=== PATIENT | male | born 1950 | race Caucasian/White ===

== ENCOUNTER → 2019-03-18 | Outpatient (CLI) | payer OTHER ==
[~2019-03-18] MED LIST: ASPI81CH; Advil200 M1; Cialis5 MG; DAILY MULTIPLE1 EACH; Depo-Testos200 MG/ML; LIVALO4 MG; LOSHYD100; OMEP20ER; TOCO400; Vitamin C100 M1; [UNRECOGNIZED DRUG - OTHER]
[2019-03-19 11:43] LABS: Adenovirus F 40/41 Not Detected (NOT DETECT); Campylobacter Sp Not Detected (NOT DETECT); Cryptosporidium Not Detected (NOT DETECT); Cyclospora Cayetanensis Not Detected (NOT DETECT); E. Coli O157 Not Detected (NOT DETECT); Entamoeba Histolytica Not Detected (NOT DETECT); Enteroaggregative E. coli-EAEC Not Detected (NOT DETECT); Enteropathogenic E. coli-EPEC Not Detected (NOT DETECT); Enterotoxigenic E. coli-ETEC Not Detected (NOT DETECT); Giardia Lamblia Not Detected (NOT DETECT); Plesiomonas Shigelloides Not Detected (NOT DETECT); Salmonella Sp Not Detected (NOT DETECT); Shiga Toxin-prod E. coli-STEC Not Detected (NOT DETECT); Shigella/Enteroin E. coli-EIEC Not Detected (NOT DETECT); Vibrio Cholerae Not Detected (NOT DETECT); Vibrio Sp Not Detected (NOT DETECT); Yersinia Enterocolitica Not Detected (NOT DETECT)
[2019-03-19 11:44] LABS: Astrovirus Not Detected (NOT DETECT); Norovirus GI/GII Not Detected (NOT DETECT); Rotavirus A Not Detected (NOT DETECT); Sapovirus Not Detected (NOT DETECT)
== END | disposition home or self-care (01) ==
LOC: LAB SHORT 20:30 → LAB 20:30 → LAB FUT 03-18 10:40 → EDSTATUS 03-18 10:40
PROVIDERS: Family Medicine
DX: K52.9 Noninfective gastroenteritis and colitis, unspecified (principal)
CPT/HCPCS: 0097U

== ENCOUNTER 2019-04-02 13:35 | Day surgery (SDC) | payer OTHER ==
[~2019-04-02] VITALS: Ht 185.4 cm; Wt 85.1 kg
== END 2019-04-02 15:42 | disposition home or self-care (01) ==
LOC: ORSCSDS 13:35
PROVIDERS: Internal Medicine Gastroenterology
PROC: 0DB78ZX Excision of Stomach, Pylorus, Via Natural or Artificial Opening Endoscopic, Diagnostic (ICD-10-PCS; principal; 2019-04-02 15:00)
PROC: 0DB58ZX Excision of Esophagus, Via Natural or Artificial Opening Endoscopic, Diagnostic (ICD-10-PCS; principal; 2019-04-02 15:00)
PROC: 0DB98ZX Excision of Duodenum, Via Natural or Artificial Opening Endoscopic, Diagnostic (ICD-10-PCS; principal; 2019-04-02 15:00)
DX: K21.9 Gastro-esophageal reflux disease without esophagitis (principal); R63.4 Abnormal weight loss; R19.7 Diarrhea, unspecified; K31.7 Polyp of stomach and duodenum; K29.80 Duodenitis without bleeding; K29.70 Gastritis, unspecified, without bleeding; F17.210 Nicotine dependence, cigarettes, uncomplicated; I10 Essential (primary) hypertension; Z79.899 Other long term (current) drug therapy; Z79.82 Long term (current) use of aspirin
CPT/HCPCS: 87081; 88305; 88342; J2704; J7120

== ENCOUNTER → 2019-04-03 | Outpatient (CLI) | payer OTHER | END | disposition home or self-care (01) | LOC: LAB SHORT 10:28 → OLS 10:28 | PROVIDERS: Internal Medicine Gastroenterology | DX: K52.9 Noninfective gastroenteritis and colitis, unspecified (principal); R63.4 Abnormal weight loss | CPT/HCPCS: 82656; 83993 ==

== ENCOUNTER → 2019-04-07 | Outpatient (CLI) | payer OTHER | END | disposition home or self-care (01) | LOC: OLS 12:46 → LAB SHORT 12:46 → LAB FUT 03-31 14:10 → EDSTATUS 03-31 14:10 | PROVIDERS: Internal Medicine Gastroenterology | DX: R19.7 Diarrhea, unspecified (principal); R63.4 Abnormal weight loss | CPT/HCPCS: 82710 ==

== ENCOUNTER → 2021-05-11 | Outpatient (CLI) | payer MEDICARE | LOC: LAB SHORT 07:08 | DX: D48.5 Neoplasm of uncertain behavior of skin (principal) | CPT/HCPCS: 88312 ==

== ENCOUNTER 2025-01-21 18:04 | Inpatient (IN) | payer MEDICARE ==
[~2025-01-21] VITALS: Ht 185.4 cm; Wt 81.4 kg
[~2025-01-21 18:04] MED LIST changes: -Advil200 M1; +IBUP200 PO; -OMEP20ER; +OMEP20ER PO; -Vitamin C100 M1; +Vitamin C100 M1 PO; -[UNRECOGNIZED DRUG - OTHER]; +[UNRECOGNIZED DRUG - OTHER] PO
[2025-01-21 19:00] LABS: BASOPHILS ABSOLUTE AUTO 0.07 K/mm3 (0.00-0.23); BASOPHILS PERCENT AUTO 1 % (0-2); EOSINOPHILS ABSOLUTE AUTO 0.20 K/mm3 (0.00-0.68); EOSINOPHILS PERCENT AUTO 2 % (0-6); Hematocrit 37.8 % (37.0-53.0); Hemoglobin 13.2 g/dL (13.5-17.5); IMMATURE GRAN ABSOLUTE AUTO 0.05 K/mm3 (0.00-0.10); IMMATURE GRAN PERCENT AUTO 1 % (0-1); LYMPHOCYTES ABSOLUTE AUTO 1.89 K/mm3 (0.84-5.20); LYMPHOCYTES PERCENT AUTO 23 % (21-46); MONOCYTES ABSOLUTE AUTO 0.78 K/mm3 (0.16-1.47); MONOCYTES PERCENT AUTO 10 % (4-13); Mean Corpuscular HGB Conc 34.9 g/dL (31.5-36.5); Mean Corpuscular Volume 97 fL (80-100); NEUTROPHILS ABSOLUTE AUTO 5.21 K/mm3 (1.96-9.15); NEUTROPHILS PERCENT AUTO 64 % (41-73); NRBC ABSOLUTE 0.00 K/mm3 (0.00-0.02); NRBC Auto 0.0 /100 WBC (0.0-0.2); Platelet Count 228 K/mm3 (150-400); RDW Coefficient Variation 13.7 % (11.7-14.2); RDW Standard Deviation 48.1 fL (35.1-46.3)
[2025-01-21 19:28] LABS: Alanine Aminotransfer (ALT/SGP 27.0 U/L (12-78); Albumin, Blood 2.6 g/dL (3.4-5.0); Albumin/Globulin Ratio 0.9 (0.8-1.8); Anion Gap 8.0 mmol/L (3-11); Aspartate Aminotrans (AST/SGOT 23.0 U/L (12-37); Bilirubin, Total 0.4 mg/dL (0.1-1.0); Blood Urea Nitrogen 13.0 mg/dL (8-24); CO2, Blood 25.0 mmol/L (21-32); Calcium, Blood 8.4 mg/dL (8.5-10.1); Chloride, Blood 107.0 mmol/L (98-108); Creatinine, Blood 0.7 mg/dL (0.60-1.20); Globulin, Blood 2.9 g/dL (2.2-4.0); Glucose, Blood 79.0 mg/dL (70-99); Potassium, Blood 3.1 mmol/L (3.5-5.5); Sodium, Blood 137.0 mmol/L (136-145); Total Protein, Blood 5.5 g/dL (6.4-8.2)
[2025-01-21] MEDS ORDERED: METO100ER PO (21:31)
[2025-01-21] MEDS ORDERED: AMLODIPINE BESYL5 MG PO (21:31)
[2025-01-21] MEDS ORDERED: ATORVASTATIN CA20 MG PO (21:32)
[2025-01-21] MEDS ORDERED: SPIRIVA RESPIMAT4 G3 INH (21:32)
[2025-01-21] MEDS ORDERED: Tiotropium Bromide 2.5 MCG/ACT MIST INHAL (10 ACT/4 GM) INH SCH (23:10)
[2025-01-21] MEDS ORDERED: NS 1,000 ML IV ONE ×2 (23:30→23:55)
[2025-01-21 23:37] LABS: Magnesium, Blood 1.5 mg/dL (1.6-2.4); Phosphorus, Blood 3.8 mg/dL (2.5-4.9)
[2025-01-21 23:54] LABS: Prothrombin Time Results 11.3 Sec (9.7-11.5)
[2025-01-21] MEDS ORDERED: Ondansetron HCl 2 MG / ML 2ML Vial IV PRN (23:55)
[2025-01-22] MEDS ORDERED: Pantoprazole Sodium 40 MG Injection IV SCH (00:18)
[2025-01-22] MEDS ORDERED: NS 1,000 ML IV ONE (01:02)
[2025-01-22] MEDS ORDERED: Heparin Sodium,Porcine/0.5 NS 500 ML IV SCH (02:00)
[2025-01-22] MEDS ORDERED: Heparin Sodium 5000 Units/ML 1ML MDV IV ONE (02:00)
[2025-01-22] MEDS ORDERED: Magnesium Sulf 2 GM/Water 50ML 50 ML IV ONE (03:15)
[2025-01-22 07:29] LABS: BASOPHILS ABSOLUTE AUTO 0.07 K/mm3 (0.00-0.23); BASOPHILS PERCENT AUTO 1 % (0-2); EOSINOPHILS ABSOLUTE AUTO 0.20 K/mm3 (0.00-0.68); EOSINOPHILS PERCENT AUTO 2 % (0-6); Hematocrit 37.0 % (37.0-53.0); Hemoglobin 12.8 g/dL (13.5-17.5); IMMATURE GRAN ABSOLUTE AUTO 0.06 K/mm3 (0.00-0.10); IMMATURE GRAN PERCENT AUTO 1 % (0-1); LYMPHOCYTES ABSOLUTE AUTO 1.31 K/mm3 (0.84-5.20); LYMPHOCYTES PERCENT AUTO 16 % (21-46); MONOCYTES ABSOLUTE AUTO 0.74 K/mm3 (0.16-1.47); MONOCYTES PERCENT AUTO 9 % (4-13); Mean Corpuscular HGB Conc 34.6 g/dL (31.5-36.5); Mean Corpuscular Volume 97 fL (80-100); NEUTROPHILS ABSOLUTE AUTO 5.83 K/mm3 (1.96-9.15); NEUTROPHILS PERCENT AUTO 71 % (41-73); NRBC ABSOLUTE 0.00 K/mm3 (0.00-0.02); NRBC Auto 0.0 /100 WBC (0.0-0.2); Platelet Count 210 K/mm3 (150-400); RDW Coefficient Variation 13.7 % (11.7-14.2); RDW Standard Deviation 48.0 fL (35.1-46.3)
[2025-01-22 07:51] LABS: Alanine Aminotransfer (ALT/SGP 22.0 U/L (12-78); Albumin, Blood 2.5 g/dL (3.4-5.0); Albumin/Globulin Ratio 1.0 (0.8-1.8); Anion Gap 8.0 mmol/L (3-11); Aspartate Aminotrans (AST/SGOT 25.0 U/L (12-37); Bilirubin, Total 0.6 mg/dL (0.1-1.0); Blood Urea Nitrogen 10.0 mg/dL (8-24); CO2, Blood 26.0 mmol/L (21-32); Calcium, Blood 7.8 mg/dL (8.5-10.1); Chloride, Blood 109.0 mmol/L (98-108); Creatinine, Blood 0.55 mg/dL (0.60-1.20); Globulin, Blood 2.6 g/dL (2.2-4.0); Glucose, Blood 77.0 mg/dL (70-99); Potassium, Blood 3.6 mmol/L (3.5-5.5); Sodium, Blood 139.0 mmol/L (136-145); Total Protein, Blood 5.1 g/dL (6.4-8.2)
[2025-01-22] MEDS ORDERED: CREON DR 12,001 EACH (09:27)
[2025-01-22 12:29] VITALS: BP 141/77
[2025-01-22] MEDS ORDERED: METR59TL TOP (13:18)
[2025-01-22 16:50] VITALS: BP 125/86
--- NOTE | 2025-01-22 17:12 | NUR ---
PT AOX4 AND COOPERATIVE OF CARE. PT HAS HEPRIN RUNNING DID 2 RN VERIFICATION. PT ABLE TO MAKE ALL NEEDS KNOWN. CALL LIGHT WITHIN REACH WILL CONTINUE TO MONITOR.
[2025-01-22 19:52] VITALS: BP 148/83
[2025-01-22 23:55] VITALS: BP 137/80
[2025-01-23] VITALS (20 sets, daily range): BP systolic 103–152; BP diastolic 59–115
--- NOTE | 2025-01-23 03:54 | NUR ---
SHIFT SUMMARY ADMITTED FOR BILATERAL PLEURAL EFFUSIONS. FULL CODE. HEPARIN GTT INFUSING. NPO FOR POSSIBLE SCOPE TODAY. WE WILL BE STOPPING THE HEPARIN @ 0600 HOURS. REGULAR DIET. ON RA, A&O X4, STANDBY ASSIST. REGULAR DIET. TELEMETRY: NSR @ 67 BPM. SURGICAL CONSULT IS DR. NEWMAN. HE DENIES PAIN. NO NEW CONCERNS
[2025-01-23 05:02] LABS: BASOPHILS ABSOLUTE AUTO 0.05 K/mm3 (0.00-0.23); BASOPHILS PERCENT AUTO 1 % (0-2); EOSINOPHILS ABSOLUTE AUTO 0.19 K/mm3 (0.00-0.68); EOSINOPHILS PERCENT AUTO 2 % (0-6); Hematocrit 36.1 % (37.0-53.0); Hemoglobin 12.5 g/dL (13.5-17.5); IMMATURE GRAN ABSOLUTE AUTO 0.03 K/mm3 (0.00-0.10); IMMATURE GRAN PERCENT AUTO 0 % (0-1); LYMPHOCYTES ABSOLUTE AUTO 1.62 K/mm3 (0.84-5.20); LYMPHOCYTES PERCENT AUTO 19 % (21-46); MONOCYTES ABSOLUTE AUTO 0.75 K/mm3 (0.16-1.47); MONOCYTES PERCENT AUTO 9 % (4-13); Mean Corpuscular HGB Conc 34.6 g/dL (31.5-36.5); Mean Corpuscular Volume 97 fL (80-100); NEUTROPHILS ABSOLUTE AUTO 5.74 K/mm3 (1.96-9.15); NEUTROPHILS PERCENT AUTO 69 % (41-73); NRBC ABSOLUTE 0.00 K/mm3 (0.00-0.02); NRBC Auto 0.0 /100 WBC (0.0-0.2); Platelet Count 201 K/mm3 (150-400); RDW Coefficient Variation 13.8 % (11.7-14.2); RDW Standard Deviation 48.3 fL (35.1-46.3)
[2025-01-23] MEDS ORDERED: Dose Adjust by Pharmacy XX STA (06:46)
--- NOTE | 2025-01-23 11:27 | NUR ---
20G IV IN RFA ASSESSED AND IS WORKING WELL. PT TO UNIT VIA GURN, ABLE TO TRANSFER HIMSELF INDEPENDENLY TO GURN. TO DAY SURGERY WITH PT AND RAMAINS AT PT'S BEDSIDE. History, Chart, Medications and Allergies reviewed before start of procedure. GLASSES AND DENTURES REMOVED AND PLACE AT HEAD OF BED. TELE BOX IN PLACE AND ON IN DAY SURGERY PRE OP AREA.
--- NOTE | 2025-01-23 12:35 | NUR ---
01/23/25 1235 Arsenio Waldrop CONFIRMED AND REVIEWED H&P, MEDCICATIONS, ALLERGIES, MEDICAL HISTORY, RESPIRATORY HISTORY, VITAL SIGNS, 3-LEAD EKG, CONSENTS, AND PHYSICIAN ORDERS. PATIENT CONFIRMS NPO STATUS AND AGREES WITH SCHEDULED PROCEDURE. MONITOR INTACT WITH CONTINUOUS PULSE OXIMETRY, CAPNOGRAPHY, 3-LEAD EKG, INTERMITTENT BP. SUPPLEMENTAL O2 TO BE TITRATED THROUGHOUT PROCEDURE TO MAINTAIN O2 SATURATION ABOVE 90%. PATIENT DETERMINED TO BE ASA APPROPRIATE FOR PROPOFOL SEDATION PRIOR TO START OF PROCEDURE BY DR. NEWMAN
--- NOTE | 2025-01-23 13:52 | NUR ---
PATIENT RETURNED FROM DAY SURGERY AT 1345. BEDSIDE REPORT FROM CY Medina RN. CARMEN RECEIVED 300 FLUIDS AND 260 PROPOFOL. TOLERATED PROCEDURE WELL PER REPORT. AO X 4 ON ARRIVAL TO MED FLOOR. TRANSFERS WITH STANDBY ASSIST TO BED. COMES TO ROOM TO MEET WITH SPOUSE AND PATIENT. ORDER FOR ADVANCE TOLERATED DIET. VSS CURRENTLY. WILL CONTINUE TO MONITOR THIS PATIENT CLOSELY.
--- NOTE | 2025-01-23 17:40 | NUR ---
SUMMARY PT WENT DOWN FOR EGD W/BIOPSIES COLLECTED WITH DR. NEWMAN. DR. NEWMAN ORDERED NEW PHARMACY HEPARIN CONSULT TO RESTART DRIP AT 1900 01/23, NO BOLUS. PHARMACY REVIWED AND RATE TO RESTART AT 16 UNITS/KG/HR. NO BOLUS. PT DENIES SOB AT REST. DENIES CHST PAIN OR LEG PAIN. VITALS REMAIN WNL. DR. MARTINI TO TRANSITION OFF HEPARIN TOMORROW. PT CALLING APPROPRIATELY. INDEPENDENT IN ROOM. SBA IF CONNECTED TO LINES.
[2025-01-24 00:09] VITALS: BP 134/91
[2025-01-24 01:20] LABS: BASOPHILS ABSOLUTE AUTO 0.06 K/mm3 (0.00-0.23); BASOPHILS PERCENT AUTO 1 % (0-2); EOSINOPHILS ABSOLUTE AUTO 0.23 K/mm3 (0.00-0.68); EOSINOPHILS PERCENT AUTO 3 % (0-6); Hematocrit 35.6 % (37.0-53.0); Hemoglobin 12.4 g/dL (13.5-17.5); IMMATURE GRAN ABSOLUTE AUTO 0.03 K/mm3 (0.00-0.10); IMMATURE GRAN PERCENT AUTO 0 % (0-1); LYMPHOCYTES ABSOLUTE AUTO 1.81 K/mm3 (0.84-5.20); LYMPHOCYTES PERCENT AUTO 22 % (21-46); MONOCYTES ABSOLUTE AUTO 0.73 K/mm3 (0.16-1.47); MONOCYTES PERCENT AUTO 9 % (4-13); Mean Corpuscular HGB Conc 34.8 g/dL (31.5-36.5); Mean Corpuscular Volume 98 fL (80-100); NEUTROPHILS ABSOLUTE AUTO 5.44 K/mm3 (1.96-9.15); NEUTROPHILS PERCENT AUTO 66 % (41-73); NRBC ABSOLUTE 0.00 K/mm3 (0.00-0.02); NRBC Auto 0.0 /100 WBC (0.0-0.2); Platelet Count 193 K/mm3 (150-400); RDW Coefficient Variation 13.7 % (11.7-14.2); RDW Standard Deviation 48.9 fL (35.1-46.3)
[2025-01-24 01:51] LABS: Anion Gap 8.0 mmol/L (3-11); Blood Urea Nitrogen 11.0 mg/dL (8-24); CO2, Blood 25.0 mmol/L (21-32); Calcium, Blood 7.3 mg/dL (8.5-10.1); Chloride, Blood 109.0 mmol/L (98-108); Creatinine, Blood 0.69 mg/dL (0.60-1.20); Glucose, Blood 86.0 mg/dL (70-99); Potassium, Blood 3.2 mmol/L (3.5-5.5); Sodium, Blood 139.0 mmol/L (136-145)
[2025-01-24] MEDS ORDERED: Clarify Drug Order XX ONE (02:20)
--- NOTE | 2025-01-24 03:54 | NUR ---
SHIFT SUMMARY ADMITTED FOR BILATERAL PULMONARY EMBOLI. FULL CODE. ENDOSCOPY PERFORMED ON PREVIOUS SHIFT. HEPARIN DRIP INFUSING, PHARMACY MANAGING. SURGICAL CONSULT IS DR. ZIMMERMAN. HE IS ON A REGULAR DIET, RA, A&O X4, STANDBY ASSIST DUE TO LINES. TELEMETRY: NSR @ 62 BPM. NO NEW CONCERNS THIS SHIFT. PLAN IS FOR DC HOME WITH FAMILY.
[2025-01-24 04:45] VITALS: BP 137/121
[2025-01-24 07:25] VITALS: BP 119/80
[2025-01-24] MEDS ORDERED: Dose Adjust by Pharmacy XX STA (07:39)
[2025-01-24 11:52] VITALS: BP 125/72
[2025-01-24] MEDS ORDERED: ELIQUIS5 M2 PO (12:07)
[2025-01-24] MEDS ORDERED: LOSARTAN-HCTZ1 EACH PO (12:12)
--- NOTE | 2025-01-24 13:56 | NUR ---
PT DISCHARGED HOME WITH . EDUCATION PROVIDED, ALL BELONGINGS WITH PATIENT.
== END 2025-01-24 12:45 | disposition home or self-care (01) | DRG 176 ==
LOC: ER 18:04 → ERHOLD 18:05 → MEDS 18:05 → ERHOLD 18:05 → MEDS 01-22 12:06 → ENPENDDIS 01-24 10:30 → MEDS 01-24 12:45
PROVIDERS: Internal Medicine; Physician Assistant; Surgery; ADMIT Internal Medicine
PROC: 0DB68ZX Excision of Stomach, Via Natural or Artificial Opening Endoscopic, Diagnostic (ICD-10-PCS; principal; 2025-01-23 12:30)
DX: I26.99 Other pulmonary embolism without acute cor pulmonale (principal); I82.451 Acute embolism and thrombosis of right peroneal vein; I82.442 Acute embolism and thrombosis of left tibial vein; I82.432 Acute embolism and thrombosis of left popliteal vein; I45.10 Unspecified right bundle-branch block; I10 Essential (primary) hypertension; E78.5 Hyperlipidemia, unspecified; K21.9 Gastro-esophageal reflux disease without esophagitis; I73.9 Peripheral vascular disease, unspecified; F17.210 Nicotine dependence, cigarettes, uncomplicated; E87.6 Hypokalemia; E83.42 Hypomagnesemia; D64.9 Anemia, unspecified; K31.89 Other diseases of stomach and duodenum; K86.89 Other specified diseases of pancreas; R53.82 Chronic fatigue, unspecified; K44.9 Diaphragmatic hernia without obstruction or gangrene; R63.4 Abnormal weight loss; M41.9 Scoliosis, unspecified; I70.0 Atherosclerosis of aorta; K57.10 Diverticulosis of small intestine without perforation or abscess without bleeding; K76.89 Other specified diseases of liver; J43.9 Emphysema, unspecified; J98.4 Other disorders of lung; Z79.1 Long term (current) use of non-steroidal anti-inflammatories (NSAID); Z79.82 Long term (current) use of aspirin; Z79.899 Other long term (current) drug therapy; Z98.52 Vasectomy status; Z98.890 Other specified postprocedural states; Z95.828 Presence of other vascular implants and grafts
CPT/HCPCS: 36415; 71260; 74177; 80048; 80053; 83735; 83880; 84100; 85025; 85520; 85610; 88305; 93005; 93010; 93306; 93970; 94640; 94664; 94760; 96365; 96366; 96367; 96368; 96374; 96375; 99285-25; A9270; G0378; J1644; J2470; J2704; J3475; J3480; J7030; J7050; J7120; Q9967